=== PATIENT | male | born 1960 | race African-American/Black ===

== ENCOUNTER 2017-08-11 11:18 | Inpatient (IN) | payer OTHER ==
[~2017-08-11] VITALS: Ht 175.3 cm; Wt 82.6 kg
[2017-08-11 11:30] VITALS: BP 144/73
[2017-08-11] MEDS ORDERED: Dicyclomine HCl 10mg/5ml oral soln ORAL ONE (11:30)
[2017-08-11 12:38] LABS: BASOPHILS % (AUTO) 2.4 % (0.0-2.0); EOSINOPHILS % (AUTO) 3.4 % (0.0-3.0); LYMPHOCYTES % (AUTO) 14.8 % (20.0-45.0); MEAN CORPUSCULAR HEMOGLOBIN 31.8 PG (27.0-31.0); MEAN CORPUSCULAR HGB CONC 31.4 G/DL (32.0-36.0); MEAN CORPUSCULAR VOLUME 101 FL (80-99); MEAN PLATELET VOLUME 5.7 FL (6.5-10.1); MONOCYTES % (AUTO) 5.9 % (1.0-10.0); NEUTROPHILS % (AUTO) 73.5 % (45.0-75.0); PLATELET COUNT 288 K/UL (150-450); RED CELL DISTRIBUTION WIDTH 14.4 % (11.6-14.8); WHITE BLOOD COUNT 6.5 K/UL (4.8-10.8)
[2017-08-11 12:42] LABS: ANION GAP 13 mmol/L (5-15); CALCIUM 9.3 MG/DL (8.5-10.1); CARBON DIOXIDE 23 MMOL/L (21-32); CHLORIDE 102 MMOL/L (98-107); CREATININE 8.5 MG/DL (0.55-1.30); GLOMERULAR FILTRATION RATE 6.5 mL/min (>60); POTASSIUM 5.5 MMOL/L (3.5-5.1); PROTHROMBIN TIME 10.3 SEC (9.30-11.50); SODIUM 138 MMOL/L (136-145)
[2017-08-11 12:48] LABS: ALANINE AMINOTRANSFERASE 24 U/L (12-78); ALBUMIN/GLOBULIN RATIO 0.8 (1.0-2.7); ASPARTATE AMINO TRANSFERASE 40 U/L (15-37); LIPASE 486 U/L (73-393); TOTAL PROTEIN 9.3 G/DL (6.4-8.2)
[2017-08-11] MEDS ORDERED: Haloperidol 5mg/ml Inj IM ONE (13:45)
[2017-08-11] MEDS ORDERED: Morphine Sulfate 4mg/ml Inj IVP ONE (13:45)
[2017-08-11 14:09] VITALS: BP 159/82
[2017-08-11] MEDS ORDERED: Sodium Polystyrene Sulfonate 15gm Powder ORAL ONE (14:45)
--- NOTE | 2017-08-11 16:27 | Emergency Room Report ---
Physical Exam Vital Signs Date Time Temp Pulse Resp B/P (MAP) Pulse Ox O2 Delivery O2 Flow Rate FiO2 08/11/17 11:08 88 18 150/80 95 Room Air Medical Decision Making Diagnostic Impression: Primary Impression: Pancreatitis Additional Impressions: Abdominal pain ESRD (end stage renal disease) Hyperkalemia ER Course I received signout from Dr. Cervantes This is a 57-year-old male, history of end-stage renal disease, on dialysis Saturday, last dialysis was yesterday, here for epigastric pain CT scan revealing no abnormalities: Postoperative report, no appendicitis, SBO, or diverticulitis. No hydronephrosis or ureteric calculus. Unremarkable gallbladder and pancreas. Small umbilical fat hernia Lipase is elevated - acute pancreatitis highly likely given history and physical exam despite no CT findings Given fluids and morphine Slightly high potassium 5.5 - treated with hyperK cocktail continues to have n/v, will give more zofran Patient will be admitted to telemetry under Dr. Vee I endorsed the patient to Dr. Kim who is covering for Dr. Vee She has accepted the patient Laboratory Tests Test 08/11/17 12:00 White Blood Count 6.5 K/UL (4.8-10.8) Red Blood Count 4.30 M/UL (4.70-6.10) L Hemoglobin 13.7 G/DL (14.2-18.0) L Hematocrit 43.5 % (42.0-52.0) Mean Corpuscular Volume 101 FL (80-99) H Mean Corpuscular Hemoglobin 31.8 PG (27.0-31.0) H Mean Corpuscular Hemoglobin Concent 31.4 G/DL (32.0-36.0) L Red Cell Distribution Width 14.4 % (11.6-14.8) Platelet Count 288 K/UL (150-450) Mean Platelet Volume 5.7 FL (6.5-10.1) L Neutrophils (%) (Auto) 73.5 % (45.0-75.0) Lymphocytes (%) (Auto) 14.8 % (20.0-45.0) L Monocytes (%) (Auto) 5.9 % (1.0-10.0) Eosinophils (%) (Auto) 3.4 % (0.0-3.0) H Basophils (%) (Auto) 2.4 % (0.0-2.0) H Prothrombin Time 10.3 SEC (9.30-11.50) Prothrombin Time INR 1.0 (0.9-1.1) PTT 27 SEC (23-33) Sodium Level 138 MMOL/L (136-145) Potassium Level 5.5 MMOL/L (3.5-5.1) H Chloride Level 102 MMOL/L (98-107) Carbon Dioxide Level 23 MMOL/L (21-32) Anion Gap 13 mmol/L (5-15) Blood Urea Nitrogen 35 mg/dL (7-18) H Creatinine 8.5 MG/DL (0.55-1.30) H Estimate Glomerular Filtration Rate 6.5 mL/min (>60) Glucose Level 102 MG/DL (74-106) Calcium Level 9.3 MG/DL (8.5-10.1) Total Bilirubin 0.4 MG/DL (0.2-1.0) Aspartate Amino Transferase (AST) 40 U/L (15-37) H Alanine Aminotransferase (ALT) 24 U/L (12-78) Alkaline Phosphatase 109 U/L (46-116) Troponin I 0.028 ng/mL (0.000-0.056) Total Protein 9.3 G/DL (6.4-8.2) H Albumin 4.0 G/DL (3.4-5.0) Globulin 5.3 g/dL Albumin/Globulin Ratio 0.8 (1.0-2.7) L Lipase 486 U/L (73-393) H Last Vital Signs Date Time Temp Pulse Resp B/P (MAP) Pulse Ox O2 Delivery O2 Flow Rate FiO2 08/11/17 14:09 83 16 159/82 98 Room Air Disposition: ADMITTED INPATIENT Condition: Serious Referrals: [facility],REFERRING (PCP) Anu Kamara M.D. Aug 11, 2017 16:27
[2017-08-11] MEDS ORDERED: Calcium Gluconate 1gm/10ml vial IVP ONE (16:30)
[2017-08-11] MEDS ORDERED: Sodium Bicarbonate 50ml Carp IV ONE (16:30)
[2017-08-11 18:00] VITALS: BP 167/90
[2017-08-11 19:00] VITALS: BP 148/82
[2017-08-11] MEDS ORDERED: RENVELA800 MG ORAL (19:29)
[2017-08-11] MEDS ORDERED: FUROSEMIDE20 M1 ORAL (19:29)
[2017-08-11] MEDS ORDERED: NIFEDIPINE ER60 M3 ORAL (19:30)
[2017-08-11 20:51] VITALS: BP 112/79
[2017-08-11 23:00] VITALS: BP 134/89
[2017-08-12] VITALS (8 sets, daily range): BP systolic 126–154; BP diastolic 77–94
--- NOTE | 2017-08-12 09:17 | Diagnostic Imaging Report ---
Indication: Abdominal pain Technique: Continuous helical transaxial imaging of the abdomen and pelvis was obtained from the lung bases to the pubic symphysis. No intravenous contrast was administered. Coronal 2-D reformats were also obtained. Automatic Exposure Control was utilized. Total Dose length Product (DLP): 761.[address] Dose Index Volume (CTDIvol): 14.79 mGy Comparison: none Findings: Normal retrocecal appendix demonstrated. The lung bases show some minimal subsegmental atelectasis. Kidneys appear somewhat atrophic. Diverticula noted throughout the colon without evidence of acute diverticulitis. There is no free fluid, free air or evidence of bowel obstruction. Mild aortoiliac calcification demonstrated. Gallbladder is unremarkable. There is no hydronephrosis or nephrolithiasis. Tiny umbilical hernia containing fat demonstrated. Multilevel narrowing of the intervertebral thoracic and lumbar discs noted. IMPRESSION: No acute findings appreciated. Chronic findings as described above. [facility] has communicated the preliminary results to the Emergency Department. Their findings are largely concordant with this report. The CT scanner at [facility] is accredited by the [employer] and the scans are performed using dose optimization techniques as appropriate to a performed exam including Automatic Exposure control.
[2017-08-12] MEDS ORDERED: Heparin Sod 1000 units/ml 10ml IV PRN (15:00)
--- NOTE | 2017-08-12 18:15 | History and Physical Report ---
DATE OF ADMISSION: 08/11/2017 CHIEF COMPLAINT: Abdominal pain. HISTORY OF PRESENT ILLNESS: This is a 57-year-old male with end-stage renal failure, on dialysis Saturday, , and Saturday. The patient presented to the emergency department yesterday for epigastric pain. CT scan was unremarkable. The patient was admitted for elevation of lipase with rule out pancreatitis status. PAST MEDICAL HISTORY: 1. End-stage renal failure on dialysis. 2. Anemia of chronic kidney disease. MEDICATIONS: Lasix, nifedipine ER, Benadryl p.r.n., and Renvela. ALLERGIES: Codeine. SOCIAL HISTORY: He lives at home. HABITS: He is nonsmoker and nondrinker. There is no history of illicit drug abuse. FAMILY HISTORY: Unremarkable. REVIEW OF SYSTEMS: HEENT: Hearing and eyesight are normal. ENDOCRINE: No history of diabetes, thyroid, or adrenal problems. RESPIRATORY: He denies shortness of breath, cough, or hemoptysis. CARDIOVASCULAR: He denies chest pain or palpitations. GASTROINTESTINAL: Significant for vague abdominal pain. NEUROLOGIC: No history of stroke, syncope, or Parkinson disease. PHYSICAL EXAMINATION: GENERAL: This is an elderly male, who is in no acute distress. VITAL SIGNS: Blood pressure 138/88, pulse 78 and regular, respirations 20, and temperature 98. HEENT: The head is normocephalic and atraumatic. Pupils are equal, round, and reactive to light and accommodation consensually. NECK: Supple. Trachea midline. There is no lymphadenopathy or thyromegaly. LUNGS: Clear to auscultation and percussion. HEART: Regular rate and rhythm without rubs, murmurs, or gallops. ABDOMEN: Soft. Bowel sounds were active. EXTREMITIES: No clubbing, cyanosis, or edema. He has a left upper arm AV fistula. LABORATORY AND ANCILLARY DATA: CBC, hemoglobin 13.7, otherwise within normal limits. Yesterday, potassium was 5.5, BUN 35, creatinine 8.5. Troponin level 0.028. Lipase 486. CT scan of abdomen and pelvis, no acute findings, bilateral renal atrophy. ASSESSMENT: 1. Nonspecific abdominal pain. 2. End-stage renal failure on dialysis. 3. Anemia of chronic kidney disease PLAN: 1. Symptomatic therapy. 2. Hemodialysis on Saturday, , and Saturday. 3. Continue home medications. Brad Hager M.D. DR: Du JOB#: [id number] CC:
--- NOTE | 2017-08-12 19:46 | Emergency Room Report ---
History of Present Illness General Chief Complaint: Abdominal Pain Source: Patient Present Illness HPI Patient's 57-year-old male who presented after increased abdominal pain. Patient prior history of end-stage renal disease. He reports having sharp epigastric pain which did not radiate. He reports having prior history of pancreatitis. Patient states that he had been vomiting. He reports being dialyzed yesterday. He stated he had 3 hours of dialysis. He reports being diabetic. History markedly limited by patient's poor cooperation Allergies: Coded Allergies: CODEINE (Verified Allergy, Unknown, 08/12/17) patient is allegic to codeine according him. Patient History Past Medical History: see triage record Reviewed Nursing Documentation: PMH: Agreed, PSxH: Agreed Nursing Documentation-PMH Hx Cardiac Problems: No Hx Hypertension: Yes Hx Cancer: No Hx Gastrointestinal Problems: No Hx Dialysis: Yes - last dialyzed yesterday Hx Neurological Problems: No Review of Systems All Other Systems: limited - by poor cooperation Physical Exam Vital Signs Date Time Temp Pulse Resp B/P (MAP) Pulse Ox O2 Delivery O2 Flow Rate FiO2 08/11/17 11:08 88 18 150/80 95 Room Air 08/12/17 08:00 97.8 Sp02 EP Interpretation: reviewed, normal General Appearance: normal inspection, well appearing, no apparent distress, alert, GCS 15 Head: atraumatic ENT: normal ENT inspection, hearing grossly normal, normal voice Neck: normal inspection, full range of motion, supple, no bony tend Respiratory: normal inspection, lungs clear, normal breath sounds, no respiratory distress, no retraction, no wheezing Cardiovascular #1: regular rate, rhythm, no edema Gastrointestinal: normal inspection, normal bowel sounds, non tender, soft, no guarding, no hernia, tenderness - epigastric area Genitourinary: no CVA tenderness Musculoskeletal: normal inspection, back normal, normal range of motion Neurologic: normal inspection, alert, oriented x3, responsive, clinical research tech III-XII nml as tested, speech normal Psychiatric: normal inspection, judgement/insight normal, mood/affect normal Skin: normal inspection, normal color, no rash Medical Decision Making Diagnostic Impression: Primary Impression: Pancreatitis Additional Impressions: ESRD (end stage renal disease) Abdominal pain Hyperkalemia ER Course Patient presented for abdominal pain. Differential diagnoses included ischemic bowel, appendicitis, perforated viscus, abdominal aortic aneurysm, inferior myocardial infarction, viral gastroenteritis. Because of complexity of patient' s case laboratory testing and imaging studies were ordered. The patient noted have some epigastric pain. This has somewhat consistent with patient previous pancreatitis. The patient was given IV pain medications. Laboratory testing showed adequate hemoglobin with slightly elevated lipase as well as hyperkalemia. CT was negative for acute abdominal process. I EKG interpreted by me showed normal sinus rhythm without acute ST changes. The patient was noted to have some slight peaking of his T waves. QRS was normal duration. The patient was given oral Kayexalate. Patient was endorsed to Dr. Kamara pending final disposition likely will be admitted to the hospital for further evaluation and treatment. Labs Test 08/11/17 12:00 White Blood Count 6.5 K/UL (4.8-10.8) Red Blood Count 4.30 M/UL (4.70-6.10) Hemoglobin 13.7 G/DL (14.2-18.0) Hematocrit 43.5 % (42.0-52.0) Mean Corpuscular Volume 101 FL (80-99) Mean Corpuscular Hemoglobin 31.8 PG (27.0-31.0) Mean Corpuscular Hemoglobin Concent 31.4 G/DL (32.0-36.0) Red Cell Distribution Width 14.4 % (11.6-14.8) Platelet Count 288 K/UL (150-450) Mean Platelet Volume 5.7 FL (6.5-10.1) Neutrophils (%) (Auto) 73.5 % (45.0-75.0) Lymphocytes (%) (Auto) 14.8 % (20.0-45.0) Monocytes (%) (Auto) 5.9 % (1.0-10.0) Eosinophils (%) (Auto) 3.4 % (0.0-3.0) Basophils (%) (Auto) 2.4 % (0.0-2.0) Prothrombin Time 10.3 SEC (9.30-11.50) Prothromb Time International Ratio 1.0 (0.9-1.1) Activated Partial Thromboplast Time 27 SEC (23-33) Sodium Level 138 MMOL/L (136-145) Potassium Level 5.5 MMOL/L (3.5-5.1) Chloride Level 102 MMOL/L (98-107) Carbon Dioxide Level 23 MMOL/L (21-32) Anion Gap 13 mmol/L (5-15) Blood Urea Nitrogen 35 mg/dL (7-18) Creatinine 8.5 MG/DL (0.55-1.30) Estimat Glomerular Filtration Rate 6.5 mL/min (>60) Glucose Level 102 MG/DL (74-106) Calcium Level 9.3 MG/DL (8.5-10.1) Total Bilirubin 0.4 MG/DL (0.2-1.0) Aspartate Amino Transf (AST/SGOT) 40 U/L (15-37) Alanine Aminotransferase (ALT/SGPT) 24 U/L (12-78) Alkaline Phosphatase 109 U/L (46-116) Troponin I 0.028 ng/mL (0.000-0.056) Total Protein 9.3 G/DL (6.4-8.2) Albumin 4.0 G/DL (3.4-5.0) Globulin 5.3 g/dL Albumin/Globulin Ratio 0.8 (1.0-2.7) Lipase 486 U/L (73-393) Last Vital Signs Date Time Temp Pulse Resp B/P (MAP) Pulse Ox O2 Delivery O2 Flow Rate FiO2 08/12/17 16:00 97.2 85 20 141/86 99 Room Air Status: unchanged Disposition: ADMITTED INPATIENT Condition: Serious Referrals: [facility],REFERRING (PCP) Tylor Cervantes Aug 12, 2017 19:46
[2017-08-12] MEDS: Heparin 5000 units/ml inj SUBQ SCH (20:01)
[2017-08-13] VITALS: BP 155/90
[2017-08-13 04:00] VITALS: BP 166/109
[2017-08-13 05:55] LABS: AMYLASE 153 U/L (25-115); LIPASE 252 U/L (73-393)
[2017-08-13 08:00] VITALS: BP 154/95
[2017-08-13] MEDS: Heparin 5000 units/ml inj SUBQ SCH ×2 (09:00→20:01)
--- NOTE | 2017-08-13 10:58 | Nephrology Progress Note ---
Assessment/Plan Plan Awaiting HD, then DC home. Noncompliant patient. Subjective Subjective Noncompliant. Ignoring me. Taking his own medications . Disapering off the floor Objective Objective Last 24 Hour Vital Signs Date Time Temp Pulse Resp B/P (MAP) Pulse Ox O2 Delivery O2 Flow Rate FiO2 08/13/17 09:00 87 148/95 08/13/17 08:00 98.2 87 19 154/95 98 Room Air 08/13/17 07:56 76 08/13/17 04:00 79 08/13/17 04:00 98.6 84 20 166/109 97 Room Air 08/13/17 00:00 97.7 79 20 155/90 94 Room Air 08/13/17 00:00 76 08/12/17 20:00 84 08/12/17 20:00 98.7 83 20 148/92 99 Room Air 08/12/17 16:00 97.2 85 20 141/86 99 Room Air 08/12/17 16:00 78 08/12/17 12:00 74 08/12/17 12:00 97.0 78 20 138/88 98 Room Air Laboratory Tests 08/13/17 04:30: Amylase Level 153H, Lipase 252 Height (Feet): 5 Height (Inches): 9.00 Weight (Pounds): 182 Objective Cannot examine. Patient ignoring me! AIDA DAVILA Aug 13, 2017 10:58
[2017-08-13 11:10] VITALS: BP 148/91
[2017-08-13 16:00] VITALS: BP 160/92
[2017-08-13 20:55] VITALS: BP 168/96
[2017-08-14 00:50] VITALS: BP 160/91
[2017-08-14 04:00] VITALS: BP 150/98
[2017-08-14 08:11] VITALS: BP 131/73
[2017-08-14] MEDS ORDERED: Heparin 5000 units/ml inj SUBQ SCH (09:00)
--- NOTE | 2017-08-14 09:26 | Nephrology Progress Note ---
Assessment/Plan Plan Awaiting HD, then DC home. Noncompliant patient. Subjective Subjective Patient didn't leave last night due to no transportation. Noncompliant. Ignoring me. Taking his own medications . Disappering off the floor Objective Objective Last 24 Hour Vital Signs Date Time Temp Pulse Resp B/P (MAP) Pulse Ox O2 Delivery O2 Flow Rate FiO2 08/14/17 08:11 98.1 79 20 131/73 95 08/14/17 04:00 99.3 84 21 150/98 95 08/14/17 00:50 98.4 80 20 160/91 94 Room Air 08/13/17 20:55 98.7 83 20 168/96 94 Room Air 08/13/17 19:41 Room Air 08/13/17 16:00 97.7 75 20 160/92 99 Room Air 08/13/17 15:57 79 08/13/17 15:53 Room Air 08/13/17 11:10 98.5 75 20 148/91 99 Room Air 08/13/17 11:10 75 Intake and Output 08/14/17 08/15/17 19:00 07:00 Intake Total 480 ml Balance 480 ml Intake Oral 480 ml Laboratory Tests 08/13/17 16:15: Hepatitis A IgM Antibody [Pending], Hepatitis B Surface Antigen [Pending], Hepatitis B Core IgM Antibody [Pending], Hepatitis C Antibody [Pending] Height (Feet): 5 Height (Inches): 9.00 Weight (Pounds): 182 Objective Cannot examine. Patient ignoring me! AIDA DAVILA Aug 14, 2017 09:26
--- NOTE | 2017-08-15 09:58 | Discharge Summary ---
Discharge Summary Hospital Course Date of Admission Aug 11, 2017 at 16:14 Date of Discharge Aug 14, 2017 at 08:00 Admitting Diagnosis hyperkalemia, esrd, abdominal pain HPI Michael Stein is a 57 year old male who was admitted on Aug 11, 2017 at 16: 14 for Hyperkalemia,End Stage Renal Disease,Abdominal Hospital Course [id number] Discharge Discharge Disposition Patient was discharged to Home (01) Discharge Diagnoses: Paz Odom NP Aug 15, 2017 09:58
--- NOTE | 2017-08-15 17:30 | Discharge Summary 2 SIG ---
DATE OF ADMISSION: 08/11/2017 DATE OF DISCHARGE: 08/14/2017 BRIEF HOSPITAL COURSE: The patient is a 57-year-old male with end-stage renal failure, on dialysis every Saturday, , and Saturday. He presented to ED complaining of epigastric pain. On evaluation at ED, CT scan of the abdomen and pelvis showed no acute findings. There was no evidence of bowel obstruction. Blood work showed creatinine of 8.5. Lipase was elevated to 486. Potassium was elevated to 5.5. He was given Kayexalate. EKG was in sinus rhythm without acute ST changes and noted to have some slight peaking on the T-waves. He was admitted. He continued to have nausea and vomiting and was started on IV fluids. He was admitted to telemetry for acute pancreatitis. He was given inpatient hemodialysis. Hepatitis panel was negative. He was ordered renal diet. The patient is noncompliant and has been taking his own medications and disappearing of the floor. He was eventually discharged home. FINAL DIAGNOSES: 1. Acute pancreatitis. 2. End-stage renal disease, on hemodialysis. 3. Anemia of chronic kidney disease. 4. Noncompliance with medical treatment. DISPOSITION: The patient was discharged home. DISCHARGE INSTRUCTIONS: Follow up with PMD in a week. Brad Hager M.D. I have been assigned to dictate discharge summary on this account and I was not involved in the patient's management. Paz Odom N.P. DR: JOHN JOB#: [id number] CC:
--- NOTE | 2017-08-17 00:31 | Cardiology Report ---
APPROVED REPORT EKG Measurement Heart [id number] Normal sinus rhythm Possible Left atrial enlargement Left ventricular hypertrophy Prolonged QT Abnormal ECG
== END 2017-08-14 08:00 | disposition home or self-care (01) | DRG 282 ==
LOC: EDBD 11:18 → EMR 12:00 → 2W 16:14 → EDBEDREQ 08-12 04:39 → 2W 08-13 11:35 → 4E 08-14 03:42
PROC: 5A1D70Z Performance of Urinary Filtration, Intermittent, Less than 6 Hours Per Day (ICD-10-PCS; principal; 2017-08-11)
DX: K85.90 Acute pancreatitis without necrosis or infection, unspecified (principal); N18.6 End stage renal disease; Z99.2 Dependence on renal dialysis; E87.5 Hyperkalemia; D63.1 Anemia in chronic kidney disease; Z91.19 Patient's noncompliance with other medical treatment and regimen
CPT/HCPCS: 36415; 74176; 80053; 82150; 82962; 83690; 84484; 85025; 85610; 85730; 86705; 86709; 86803; 87340; 93005; 99285; J2405